=== PATIENT | female | born 1950 | race Caucasian/White ===

== ENCOUNTER → 2021-04-28 11:18 | Emergency (ER) | payer MEDICARE, SELFPAY | END | disposition left against medical advice (07) | PROVIDERS: Emergency Provider Internal Medicine Hematology & Oncology; PCP Internal Medicine | DX: Z53.21 Procedure and treatment not carried out due to patient leaving prior to being seen by health care provider (principal) | CPT/HCPCS: 99199 ==

== ENCOUNTER → 2021-04-30 03:09 | Outpatient (CLI) | payer MEDICARE, SELFPAY ==
[2021-04-30 18:35] LABS: SARS-CoV-2 RNA PCR Negative
== END ==
PROVIDERS: PCP Internal Medicine; Visit Provider Physician Assistant
DX: R68.89 Other general symptoms and signs (principal); Z20.822 Contact with and (suspected) exposure to COVID-19
CPT/HCPCS: C9803; U0003; U0005

== ENCOUNTER 2021-04-30 14:54 | Emergency (ER) | payer MEDICARE, SELFPAY ==
[2021-04-30] VITALS (8 sets, daily range): BP systolic 100–142; BP diastolic 70–81; PULSE 68–104; RESP 14–19; TEMP 36.6; O2SAT 97–99
--- NOTE | ~2021-04-30 | CT_ITS ---
EXAMINATION: CT abdomen pelvis wo con DATE: 04/30/2021 18:34 INDICATION: Nausea and abdominal distention TECHNIQUE: Computed tomography (CT) of the abdomen and pelvis was performed without intravenous contr ast. The dose-length product (DLP) was 715.07 mGy-cm. Automated exposure control and iterative recons truction technique were employed. COMPARISON: 04/10/2018 FINDINGS: Minimal dependent atelectasis is present in the lung bases. The heart size is normal. There is elevation of the right hemidiaphragm. The gallbladder is surgically absent. The liver, spleen, pa ncreas, and adrenal glands are normal. The kidneys are unremarkable. No pathologically enlarged abdom inal or pelvic lymph nodes are identified. There is no free intraperitoneal gas or evidence of bowel obstruction. There is mild circumferential wall thickening of the descending colon with surrounding e dematous stranding of pelvic fat. There is a periumbilical hernia containing fat to the left of midli ne. Severe lumbar spondylosis is noted. IMPRESSION: 1. Wall thickening of the descending colon which may reflect colitis. Reviewed, dictated and finalized at location A.
--- NOTE | 2021-04-30 15:40 | ECG_ITS ---
Measurements Intervals [place] Rate: 99 P: 53 WV: 158 QRS: -17 QRSD: 100 T: 33 QT: 342 QTc: 440 Interpretive Statements SINUS RHYTHM LEFT VENTRICULAR HYPERTROPHY DELAYED PRECORDIAL R/S TRANSITION INFERIOR INFARCT, AGE INDETERMINATE BASELINE ARTIFACT- I, III ABNORMAL ECG Electronically Signed On 04-30-2021 16:16:28 CDT by Rush Corona D.O.
[2021-04-30 15:53] LABS: Basophils Absolute Auto 0.1 K/mm3 (0.0-0.1); Basophils Percent Auto 0.5 % (0.2-1.2); Eosinophils Absolute Auto 0.1 K/mm3 (0-0.3); Eosinophils Percent Auto 0.8 % (0-4.4); Hematocrit 42.9 % (37.0-47.0); Hemoglobin 14.2 g/dL (12.0-15.0); Immature Granulocyte Absolute 0.04 K/mm3 (0.00-0.031); Immature Granulocyte Percent A 0.4 % (0-0.5); Lymphocytes Absolute Auto 1.81 K/mm3 (0.9-3.2); Lymphocytes Percent Auto 17.3 % (18.3-44.2); Mean Corpuscular HGB Conc 33.1 g/dl (32-36); Mean Corpuscular Hemoglobin 29.4 pg (26-34); Mean Corpuscular Volume 88.8 fl (80-100); Mean Platelet Volume 9.5 fl (7.4-10.4); Monocytes Absolute Auto 0.8 K/mm3 (0.1-0.6); Monocytes Percent Auto 7.5 % (2.6-8.5); Neutrophils Absolute Auto 7.7 K/mm3 (1.3-6.7); Neutrophils Percent Auto 73.5 % (45.5-73.1); Platelet Count Result 348 k/mm3 (150-375); Red Blood Count 4.83 M/mm3 (4.2-5.4); Red Cell Distribution Width 12.7 % (11.5-14.5); White Blood Count 10.4 K/mm3 (4.5-10.0)
[2021-04-30 16:03] LABS: Alanine Aminotransferase 11 U/L (4-35); Albumin Level 4.1 g/dL (3.5-5.1); Alkaline Phosphatase 110 U/L (38-126); Anion Gap 16 mmol/L (8-16); Aspartate Amino Transferase 18 U/L (14-36); Bilirubin,Total 0.5 mg/dL (0.2-1.3); Blood Urea Nitrogen 18 mg/dL (7-17); Calcium 9.8 mg/dL (8.4-10.2); Carbon Dioxide 20 mmol/L (22-30); Chloride 98 mmol/L (98-107); Estimated Glomerular Filt Rate > 60; Glucose 287 mg/dL (65-110); Lipase 92 U/L (23-300); Potassium 4.4 mmol/L (3.4-5.0); Sodium 134 mmol/L (137-145)
[2021-04-30 17:34] LABS: Add Urine Microscopic? YES; Appearance Urine Clear (Clear); Bacteria Urine Trace /hpf; Bilirubin Urine Negative (Negative); Color Urine Yellow (Yellow); Glucose Urine UA 3+ mg/dL (Negative); Ketones Urine 2+ mg/dL (Negative); Leukocyte Esterase Ur 2+ LEU/UL (Negative); Mucus Urine Rare /lpf; Nitrate Urine Negative (Negative); Protein Urine 1+ mg/dL (Negative); Squamous Epithelial Cell Urine Many /hpf (Few); Urobilinogen Urine Negative mg/dL (<2.0); WBC Urine 31-50 /hpf
[2021-04-30 17:35] LABS: Blood Urine Negative (Negative); Specific Grav Ur 1.036 (1.001-1.035)
--- NOTE | 2021-04-30 19:41 | ED.NAVMDI ---
HPI - Nausea/Vomiting/Diarrhea General Chief complaint: Nausea/Vomiting/Diarrhea Stated complaint: DIZZINESS/COVID TESTED TODAY Time Seen by Provider: 04/30/21 17:29 Source: patient Mode of arrival: ambulatory Limitations: no limitations History of Present Illness HPI Narrative: 71-year-old female Type II diabetic Here because of nausea and vomiting Patient states that she and her daughter went to [facility] for dinner on Monday and that within 30 minutes of getting their food both of them were vomiting violently Unclear if they may have shared any risk factors simultaneously prior to that She has not had diarrhea or a fever but continues to have nausea poor appetite and feels like she is bloated She has had a prior cholecystectomy, no history of any bowel obstruction No urinary symptoms Related Data Home Medications Medication Instructions Recorded Confirmed aspirin 81 mg tablet,delayed 81 mg PO DAILY 09/25/19 01/12/21 release biotin 1 mg capsule 1 mg PO DAILY 09/25/19 01/12/21 calcium polycarbophil 625 mg tablet 1,250 mg PO DAILY 09/25/19 01/12/21 cholecalciferol (vitamin D3) 25 1,000 unit PO DAILY 09/25/19 01/12/21 mcg (1,000 unit) capsule coenzyme Q10 100 mg capsule 100 mg PO DAILY 09/25/19 01/12/21 magnesium 250 mg tablet 250 mg PO DAILY 09/25/19 01/12/21 [id number]-min 1 tablet PO DAILY 09/25/19 07/07/20 3,300 unit-5 mg-200mg-75 unit tablet ER Allergies Allergy/AdvReac Type Severity Reaction Status Date / Time Iodinated Contrast Media Allergy Severe facial Verified 04/30/21 18:11 redness guaifenesin [From [employer]tex [place]] AdvReac Intermediate Anxiety Verified 04/30/21 18:11 phenylephrine [From [employer] [place]] AdvReac Intermediate Anxiety Verified 04/30/21 18:11 phenylpropanolamine AdvReac Intermediate Anxiety Verified 04/30/21 18:11 [From [employer] [place]] Influenza Virus Vaccines AdvReac Mild pneumonia Verified 04/30/21 18:11 Review of Systems Review of Systems: All systems reviewed & are unremarkable except as noted in HPI and below Constitutional: Constitutional: Reports no additional constitutional complaints, Denies chills, Reports fatigue, Denies fever(s), Denies headache(s) and Reports weakness Eyes: Eyes: Reports no additional eye complaints and Denies change in vision ENT: Denies headache(s) and Denies sore throat Cardiovascular: Cardiovascular: Denies chest pain and Denies dyspnea Respiratory: Respiratory: Denies cough and Denies dyspnea Gastrointestinal: Gastrointestinal: Reports abdominal pain, Reports bloating, Denies diarrhea, Reports nausea and Reports vomiting Genitourinary: Genitourinary: Denies urinary frequency and Denies dysuria Musculoskeletal: Musculoskeletal: Denies deformity, Denies arthralgias, Denies joint swelling and Denies numbness Integumentary/Breasts: Skin/Breast: Denies rash and Denies wounds Neurologic: Denies headache(s), Denies focal weakness and Denies numbness Psychiatric: Psychiatric: Reports no additional psychiatric complaints Endocrine: Endocrine: Reports no additional endocrine complaints Hematologic/Lymphatic: Hematologic/Lymphatic: Reports no additional hematologic/lymphatic complaints Allergic/Immunologic: Allergic/Immunologic: Reports no additional allergic/immunologic complaints [facility] Past Medical History Medical History Anxiety Diabetes History of vaginal delivery Surgical History Surgical History H/O total hysterectomy with bilateral salpingo-oophorectomy (BSO) History of back surgery History of cholecystectomy Family History Family History Sibling Patient's sister is in good health Patient's brother is in good health Family history of thyroid disease Family history of hepatitis Family history of diabetes mellitus in first degree relative D
--- NOTE | 2021-04-30 19:50 | PC.NURSE ---
Assumed care of pt at this time, pt was assisted to restroom. Meds in room - fluids initiated. VSS.
[2021-04-30] MEDS: LACTATED RINGERS 1,000 ML 999 ML IV CONT (19:53)
[2021-04-30] MEDS: PROCHLORPERAZINE EDISYLATE 10 MG/2 ML VIAL IV PUSH (19:53)
[2021-04-30 20:01] LABS: Lactic Acid Reflex 0.9 mmol/L (0.7-2.1)
== END 2021-04-30 20:33 | disposition home or self-care (01) ==
PROVIDERS: Emergency Provider Emergency Medicine; PCP Internal Medicine
DX: K52.9 Noninfective gastroenteritis and colitis, unspecified (principal); E11.9 Type 2 diabetes mellitus without complications; Z79.82 Long term (current) use of aspirin; I51.7 Cardiomegaly; R94.31 Abnormal electrocardiogram [ECG] [EKG]; Z79.84 Long term (current) use of oral hypoglycemic drugs
CPT/HCPCS: 36415; 74176; 80053; 81001; 83605; 83690; 85025; 87086; 87088; 93005; 96361; 96374; 99284; C9803; J0780; J7120; U0003; U0005